=== PATIENT | male | born 1950 | race Caucasian/White ===

== ENCOUNTER 2019-09-25 22:06 | Emergency (ER) | payer OTHER ==
[2019-09-25 23:29] LABS: Absolute Lymphocytes (CBC) 0.4 K/uL (0.7-4.9); Basophils % 0.3 % (0-1.3); Hematocrit 40.1 % (39.6-49.0); Lymphocytes % 5.4 % (15.3-44.8); MPV 7.3 fL (7.6-11.3); RBC Red Blood Cell Count 4.34 M/uL (4.33-5.43)
[2019-09-25 23:48] LABS: Albumin 3.8 g/dL (3.4-5.0); Bilirubin Total 0.6 mg/dL (0.2-1.0); Protein, Total 7.4 g/dL (6.4-8.2); Thyroid Stimulating Hormone 0.864 uIU/mL (0.360-3.740)
[2019-09-26 00:25] LABS: Blood Morphology Comment NOT SEEN (NOT SEEN); Platelet Estimate ADEQ
[2019-09-26] MEDS ORDERED: NA CHLORIDE 0.9% 1,000 ML ONE (00:39)
--- NOTE | 2019-09-26 00:59 | ER ---
Nurse's Notes [facility] Name: Luis Matthews Age: 69 yrs Sex: Male : 1950 Arrival Date: 09/25/2019 Time: 22:10 Bed 14 Private MD: Diagnosis: Other fatigue;Periapical abscess without sinus Presentation: 09/25 22:53 Presenting complaint: Patient states: Reports he went to the dentist Wednesday for a tooth ea abscess, reports he was placed on Azithromycin, family reports he has been sleeping more than normal. Transition of care: patient was not received from another setting of care. Onset of symptoms was September 25, 2019. Risk Assessment: Do you want to hurt yourself or someone else? Patient reports no desire to harm self or others. Initial Sepsis Screen: Does the patient meet any 2 criteria? No. Patient's initial sepsis screen is negative. Does the patient have a suspected source of infection? Yes: Other: tooth abcess. Care prior to arrival: None. 22:53 Method Of Arrival: Wheelchair ea 22:53 Acuity: DAWSON 4 ea - Immunization history:: Adult Immunizations up to date. - Social history:: Smoking status: Patient/guardian denies using tobacco. - Ebola Screening: : No symptoms or risks identified at this time. Screenin:57 Abuse screen: Denies threats or abuse. Nutritional screening: No deficits noted. ea Tuberculosis screening: No symptoms or risk factors identified. Fall Risk None identified. Assessment: 23:00 General: Appears in no apparent distress. Behavior is appropriate for age. Pain: Denies ea pain. Neuro: Level of Consciousness is awake, alert, obeys commands, Oriented to person, place, time. Cardiovascular: Patient's skin is warm and dry. Respiratory: Airway is patent Respiratory effort is even, unlabored, Respiratory pattern is regular, symmetrical. Derm: Skin is pink, warm \T\ dry. 09/26 00:00 Reassessment: Patient and/or family updated on plan of care and expected duration. Pain ea level reassessed. Patient is alert, oriented x 3, equal unlabored respirations, skin warm/dry/pink. 01:00 Reassessment: Patient and/or family updated on plan of care and expected duration. Pain ea level reassessed. Patient is alert, oriented x 3, equal unlabored respirations, skin warm/dry/pink. 01:45 Reassessment: Patient and/or family updated on plan of care and expected duration. Pain ea level reassessed. Patient is alert, oriented x 3, equal unlabored respirations, skin warm/dry/pink. Discharge instruction given to patient, verbalized the understanding of instruction. Pt left ED ambulatory accompanied by family. Pt tolerating well. Vital Signs: 09/25 22:59 BP 141 / 61; Pulse 97; Resp 18; Temp 100(O); Pulse Ox 93% on R/A; Weight 90.72 kg; ea Height 5 ft. 6 in. (167.64 cm); 23:30 BP 132 / 68; Pulse 88; Resp 18; Pulse Ox 99% ; ea 09/26 01:30 BP 130 / 70; Pulse 87; Resp 18; Temp 99.7; Pulse Ox 99% ; ea 09/25 22:59 Body Mass Index 32.28 (90.72 kg, 167.64 cm) ea ED Course: 09/25 22:10 Patient arrived in ED. ds1 22:31 Mark Walton NP is PHCP. pm1 22:31 Ashok Philip MD is Attending Physician. pm1 22:57 Triage completed. ea 22:58 Arm band placed on right wrist. Patient placed in an exam room, on a stretcher, on ea pulse oximetry. 22:58 Patient has correct armband on for positive identification. Bed in low position. Call ea light in reach. Side rails up X 1. 23:00 Ronna Donovan, RN is Primary Nurse. ea 09/26 01:44 No provider procedures requiring assistance completed. IV discontinued, intact, ea bleeding controlled, No redness/swelling at site. Pressure dressing applied. Administered Medications: 00:47 Drug: NS 0.9% 1000 ml Route: IV; Rate: 1000 ml; Site: right hand; ea 01:30 Follow up: Response: No adverse reaction; IV Status: Completed infusion; IV Intake: ea 1000ml Intake: 01:30 IV: 1000ml; Total: 1000ml. ea Outcome: 00:57 Discharge ordered by . pm1 01:44 Discharged to home ambulatory, with family. ea 01:44 Condition: stable 01:44 Discharge instructions given to patient, Instructed on discharge instructions, follow up and referral plans. Demonstrated understanding of instructions, follow-up care. 01:45 Patient left the ED. ea Signatures: Edith Malhotra ds1 Mark Walton, TETRYL BOILING TUB OPERATOR TETRYL BOILING TUB OPERATOR pm1 Ronna Donovan, RN RN redd
--- NOTE | 2019-09-26 01:00 | EDPHYS ---
Physician Documentation [facility] Name: Luis Matthews Age: 69 yrs Sex: Male : 1950 Arrival Date: 09/25/2019 Time: 22:10 Bed 14 Private MD: ED Physician Ashok Philip HPI: 09/25 22:48 This 69 yrs old Male presents to ER via Wheelchair with complaints of pm1 Tiredness. 09/26 00:00 Patient presenting to ER with complaints of fatigue and tiredness. Onset about 9 months pm1 ago but worse the past 3-4 days. Patient falls asleep and is foggy throughout the day. Patient with a history of sleep apnea and uses a CPAP machine. . Patient has been recently seen by a dentist for abscess to right lower molar. Onset of dental pain on Wednesday and was seen today, had x-rays and prescribed azithromycin antibiotics. Has follow up on October 23 for root canal. - Immunization history:: Adult Immunizations up to date. - Social history:: Smoking status: Patient/guardian denies using tobacco. - Ebola Screening: : No symptoms or risks identified at this time. ROS: 00:00 Eyes: Negative for injury, pain, redness, and discharge, Neck: Negative for injury, pm1 pain, and swelling. 00:00 Cardiovascular: Negative for chest pain, palpitations, and edema, Respiratory: Negative for shortness of breath, cough, wheezing, and pleuritic chest pain, Abdomen/GI: Negative for abdominal pain, nausea, vomiting, diarrhea, and constipation, Back: Negative for injury and pain. 00:00 : Negative for injury, bleeding, discharge, and swelling, MS/Extremity: Negative for injury and deformity, Skin: Negative for injury, rash, and discoloration. 00:00 Constitutional: Positive for fatigue, Negative for body aches, chills, poor PO intake. 00:00 ENT: Positive for dental pain, Negative for ear pain, difficulty swallowing, difficulty handling secretions, hoarseness. 00:00 Neuro: Negative for dizziness, headache, numbness, seizure activity, syncope, tingling, weakness. Exam: 00:00 Constitutional: This is a well developed, well nourished patient who is awake, alert, pm1 and in no acute distress. Head/Face: Normocephalic, atraumatic. Eyes: Pupils equal round and reactive to light, extra-ocular motions intact. Lids and lashes normal. Conjunctiva and sclera are non-icteric and not injected. Cornea within normal limits. Periorbital areas with no swelling, redness, or edema. 00:00 Neck: Trachea midline, no thyromegaly or masses palpated, and no cervical lymphadenopathy. Supple, full range of motion without nuchal rigidity, or vertebral point tenderness. No Meningismus. Chest/axilla: Normal chest wall appearance and motion. Nontender with no deformity. No lesions are appreciated. Cardiovascular: Regular rate and rhythm with a normal S1 and S2. No gallops, murmurs, or rubs. Normal PMI, no JVD. No pulse deficits. Respiratory: Lungs have equal breath sounds bilaterally, clear to auscultation and percussion. No rales, rhonchi or wheezes noted. No increased work of breathing, no retractions or nasal flaring. Abdomen/GI: Soft, non-tender, with normal bowel sounds. No distension or tympany. No guarding or rebound. No evidence of tenderness throughout. Back: No spinal tenderness. No costovertebral tenderness. Full range of motion. Skin: Warm, dry with normal turgor. Normal color with no rashes, no lesions, and no evidence of cellulitis. MS/ Extremity: Pulses equal, no cyanosis. Neurovascular intact. Full, normal range of motion. 00:00 ENT: External ear(s): are unremarkable, Ear canal(s): are normal, TM's: are normal, Mouth: is normal, Posterior pharynx: is normal, Dental exam: abscess, that is mild, specifically in the lower right first molar (#30). 00:00 Neuro: Orientation: is normal, Motor: is normal, moves all fours, Gait: is steady, at a normal pace, without difficulty. Vital Signs: 09/25 22:59 BP 141 / 61; Pulse 97; Resp 18; Temp 100(O); Pulse Ox 93% on R/A; Weight 90.72 kg; ea Height 5 ft. 6 in. (167.64 cm); 23:30 BP 132 / 68; Pulse 88; Resp 18; Pulse Ox 99% ; ea 09/26 01:30 BP 130 / 70; Pulse 87; Resp 18; Temp 99.7; Pulse Ox 99% ; ea 09/25 22:59 Body Mass Index 32.28 (90.72 kg, 167.64 cm) ea MDM: 09/25 22:34 Patient medically screened. pm1 09/26 00:33 Data reviewed: vital signs. Counseling: I had a detailed discussion with the patient pm1 and/or guardian regarding: the historical points, exam findings, and any diagnostic results supporting the discharge/admit diagnosis, lab results, the need for outpatient follow up, a family practitioner, to return to the emergency department if symptoms worsen or persist or if there are any questions or concerns that arise at home. 09/25 22:48 Order name: CBC with Diff; Complete Time: 00:32 pm1 09/25 22:48 Order name: CMP; Complete Time: 00:00 pm1 09/25 22:48 Order name: TSH; Complete Time: 00:00 pm1 09/25 22:50 Order name: Flu; Complete Time: 23:36 pm1 09/25 23:32 Order name: Manual Differential; Complete Time: 00:32 EDMS 09/25 22:48 Order name: IV Saline Lock; Complete Time: 23:15 pm1 09/25 22:48 Order name: Urine Dipstick-Ancillary (obtain specimen) pm1 09/25 22:55 Order name: EKG; Complete Time: 22:55 pm1 09/25 22:55 Order name: EKG - Nurse/Tech; Complete Time: 00:00 pm1 Administered Medications: 00:47 Drug: NS 0.9% 1000 ml Route: IV; Rate: 1000 ml; Site: right hand; ea 01:30 Follow up: Response: No adverse reaction; IV Status: Completed infusion; IV Intake: ea 1000ml Disposition: 09/26/19 00:57 Discharged to Home. Impression: Other fatigue, Periapical abscess without sinus. - Condition is Stable. - Discharge Instructions: Dental Pain, Fatigue. - Medication Reconciliation Form, Thank You Letter, Antibiotic Education, Prescription Opioid Use form. - Follow up: Emergency Department; When: As needed; Reason: Worsening of condition. Follow up: Private Physician; When: 2 - 3 days; Reason: Recheck today's complaints, Continuance of care, Re-evaluation by your physician. - Problem is new. - Symptoms have improved. Addendum: 09/27/2019 18:38 Co-signature as Attending Physician, Ashok Philip MD I agree with the assessment and c reed plan of care. Signatures: Dispatcher [employer] Ashok Valdez MD MD cha Marinas, Patrick, FIRE EXTINGUISHER REPAIRER INSPECTOR FIRE EXTINGUISHER REPAIRER INSPECTOR pm1 Ronna Donovan, RN ESTELLA rainey Corrections: (The following items were deleted from the chart) 09/26 00:57 00:57 09/26/2019 00:57 Discharged to Home. Impression: Other fatigue. Condition is pm1 Stable. Forms are Medication Reconciliation Form, Thank You Letter, Antibiotic Education, Prescription Opioid Use. Follow up: Emergency Department; When: As needed; Reason: Worsening of condition. Follow up: Private Physician; When: 2 - 3 days; Reason: Recheck today's complaints, Continuance of care, Re-evaluation by your physician. Problem is new. Symptoms have improved. pm1 01:45 00:57 09/26/2019 00:57 Discharged to Home. Impression: Other fatigue; Periapical ea abscess without sinus. Condition is Stable. Forms are Medication Reconciliation Form, Thank You Letter, Antibiotic Education, Prescription Opioid Use. Follow up: Emergency Department; When: As needed; Reason: Worsening of condition. Follow up: Private Physician; When: 2 - 3 days; Reason: Recheck today's complaints, Continuance of care, Re-evaluation by your physician. Problem is new. Symptoms have improved. pm1
[2019-09-26 03:54] VITALS: BP 141/61; TEMP 100; O2SAT 93
--- NOTE | 2019-09-26 06:32 | EKG ---
Test Date: 2019-09-25 Test Time: 23:59:03 Digital Marketing Executive: [place] MEASUREMENT RESULTS: Intervals: Rate: 96 [place]: 178 QRSD: 82 QT: 328 QTc: 414 [place]: P: 42 [place]: 178 QRS: -19 T: 69 INTERPRETIVE STATEMENTS: Normal sinus rhythm Normal ECG No previous ECG available for comparison Electronically Signed On 09-26-19 06:32:04 SEO SPECIALIST by Daniel Lynn
== END 2019-09-26 01:45 | disposition home or self-care (01) ==
LOC: ER 22:06
DX: K04.7 Periapical abscess without sinus (principal)
CPT/HCPCS: 93005; 85025; 36415; 84443; 80053; 87804 ×2; 96360; 99283; J7030